=== PATIENT | female | born 2000 | race American Indian/Alaskan Native ===

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

== ENCOUNTER 2021-03-13 19:21 | Emergency (ER) | payer MEDICAID ==
[2021-03-13 21:46] VITALS: BP 127/84
--- NOTE | 2021-03-13 21:58 | Emergency Department Report ---
ED ENT HPI - General Chief complaint: Sore Throat Stated complaint: SORE THROAT,CAN'T SWALLOW FEVER Time Seen by Provider: 03/13/21 21:57 Source: patient Mode of arrival: Ambulatory Limitations: No Limitations - History of Present Illness Initial comments: Patient came here because she was referred from the clinic for a possible pharyngeal or peritonsillar abscess. She developed a sore throat for a day. She has had fevers and chills. She has had no cough or congestion. She was seen at the clinic. She was prescribed Augmentin and prednisone, which she has not taken. She was told to come here directly for evaluation of peritonsillar cellulitis or abscess. Patient was told that she "needed surgery." She is tested for coronavirus and was negative according to her history. There has been no one around her with similar symptoms. She has not choked on anything. Pain is a constant aching and burning pain that is worse with swallowing. She is able to swallow her own saliva. - Related Data Previous Rx's Medication Instructions Recorded Last Taken Type Docusate Sodium [Colace] 100 mg PO BID PRN #40 capsule 10/30/17 Unknown Rx Magnesium Citrate [Citrate of 150 ml PO Q4H #1 bottle 10/30/17 Unknown Rx Magnesia] Allergies Allergy/AdvReac Type Severity Reaction Status Date / Time No Known Allergies Allergy Verified 03/13/21 21:44 ED Dental HPI - General Chief complaint: Sore Throat Stated complaint: SORE THROAT,CAN'T SWALLOW FEVER Time Seen by Provider: 03/13/21 21:57 Source: patient Mode of arrival: Ambulatory Limitations: No Limitations - Related Data Previous Rx's Medication Instructions Recorded Last Taken Type Docusate Sodium [Colace] 100 mg PO BID PRN #40 capsule 10/30/17 Unknown Rx Magnesium Citrate [Citrate of 150 ml PO Q4H #1 bottle 10/30/17 Unknown Rx Magnesia] Allergies Allergy/AdvReac Type Severity Reaction Status Date / Time No Known Allergies Allergy Verified 03/13/21 21:44 ED Review of Systems ROS: Stated complaint: SORE THROAT,CAN'T SWALLOW FEVER Other details as noted in HPI Comment: All other systems reviewed and negative Constitutional: see HPI, fever Eyes: denies: eye pain ENT: as per HPI, throat pain Respiratory: denies: cough Cardiovascular: denies: chest pain Endocrine: denies: unexplained weight loss Gastrointestinal: denies: abdominal pain Genitourinary: denies: dysuria Musculoskeletal: denies: back pain Skin: denies: rash Neurological: denies: headache Hematological/Lymphatic: denies: easy bruising ED Past Medical Hx - Past Medical History Previous Medical History?: Yes Hx Hypertension: Yes Hx Headaches / Migraines: Yes Additional medical history: CONSTIPATION "ANDRY BEEN HOSPITALIZED FOR CONSTIPATI ON' - Family History Family history: hypertension - Social History Smoking Status: Never Smoker Substance Use Type: None - Medications Home Medications: Home Medications Medication Instructions Recorded Confirmed Last Taken Type Docusate Sodium [Colace] 100 mg PO BID PRN #40 capsule 10/30/17 Unknown Rx Magnesium Citrate [Citrate of 150 ml PO Q4H #1 bottle 10/30/17 Unknown Rx Magnesia] ED Physical Exam - General Limitations: No Limitations, Other ( Pulse ox was noted and normal.) General appearance: alert, in no apparent distress, other ( Does not appear toxic) - Head Head exam: Present: atraumatic, normocephalic, normal inspection - Eye Eye exam: Present: normal appearance, EOMI. Absent: scleral icterus - ENT ENT exam: Present: other ( patient has tonsillar hypertrophy bilaterally. There is no left unilateral tonsillar hypertrophy. Uvula is not deviated. It is in the midline. There is exudate bilaterally. There is mild, bilateralperitonsillar edema. There is no change in phonation. She is handling her own secretions.) - Neck Neck exam: Present: normal inspection, lymphadenopathy ( Bilateral). Absent: meningismus - Respiratory Respiratory exam: Present: normal lung sounds bilaterally. Absent: respiratory distress - Cardiovascular Cardiovascular Exam: Present: normal rhythm, tachycardia - GI/Abdominal GI/Abdominal exam: Present: soft. Absent: tenderness - Extremities Exam Extremities exam: Present: normal capillary refill - Back Exam Back exam: Present: full ROM - Neurological Exam Neurological exam: Present: alert, oriented X3, CN II-XII intact - Psychiatric Psychiatric exam: Present: normal affect, normal mood - Skin Skin exam: Present: warm, dry ED Course Vital Signs 03/13/21 21:45 Temperature 100.6 F H Pulse Rate 122 H Respiratory 18 Rate Blood Pressure 127/84 [Left] O2 Sat by Pulse 98 Oximetry - Reevaluation(s) Reevaluation #1: 03/13/21 22:17 patient was treated and discharged. ED Medical Decision Making - Medical Decision Making Patient was referred for possible peritonsillar abscess. Clinically, there is no evidence of peritonsillar abscess. She does not have unilateral edema. The uvula is not deviated. She has no change in phonation. There is no trismus. She is handling her own secretions. She has not taken her antibiotics although they were prescribed. She has not taken the steroids that were prescribed. She was given both here and subsequently discharged. She is referred to her PCP for recheck. We discussed symptomatic treatment. Reportedly, she was Covid negative. Critical Care Time: No Critical care attestation.: If time is entered above; I have spent that time in minutes in the direct care of this critically ill patient, excluding procedure time. ED Disposition Clinical Impression: Tonsillitis Disposition: 01 HOME / SELF CARE / HOMELESS Is pt being admited?: No Does the pt Need Aspirin: No Condition: Stable Instructions: Tonsillitis Additional Instructions: drink plenty of water. use salt water gargles. take the antibiotics prescribed at the clinic. return for problems. see your doctor for recheck. use tylenol and advil for fever and pain.
[2021-03-13] MEDS ORDERED: DEXAMETHASONE 4 MG TAB PO ONE (22:04)
[2021-03-13] MEDS ORDERED: ACETAMINOPHEN 500 MG TAB PO ONE (22:04)
[2021-03-13] MEDS ORDERED: LIDOCAINE-MPF (1%) 10 MG/1 ML VIAL 5 ML INFILTRATI ONE (22:04)
== END 2021-03-13 23:24 | disposition home or self-care (01) ==
LOC: ED 19:21
DX: J03.90 Acute tonsillitis, unspecified (principal); I10 Essential (primary) hypertension; G43.909 Migraine, unspecified, not intractable, without status migrainosus; K59.00 Constipation, unspecified
CPT/HCPCS: 96372; 99282; J0696; J8540